=== PATIENT | female | born 2000 | race Caucasian/White ===

== ENCOUNTER 2021-04-21 15:44 | Observation (INO) | payer OTHER ==
[2021-04-21] MEDS ORDERED: ACETAMINOPHEN 325 MG TABLET (FP) PO ONE (16:40)
[2021-04-21] MEDS ORDERED: ACETAMINOPHEN 325 MG TABLET (FP) ONE (17:22)
[2021-04-21 17:29] LABS: BASO % 0.2 % (0-2.0); EOS % 1.2 % (0-4.5); HEMATOCRIT 39.2 % (32.4-45.2); HEMOGLOBIN 13.3 GM/dL (10.7-15.3); LYMPH % 19.6 % (8-40); MCH 30.7 pg (25.7-33.7); MCHC 33.8 g/dl (32.0-36.0); MEAN CELL VOLUME 90.7 fl (80-96); MEAN PLT VOLUME 9.8 fl (7.5-11.1); MONO % 9.4 % (3.8-10.2); NEUT % 69.6 % (42.8-82.8); PLATELET COUNT 283 K/MM3 (134-434); RBC 4.32 M/mm3 (3.60-5.2); RDW 13.2 % (11.6-15.6); WHITE BLOOD COUNT 9.1 K/mm3 (4.0-10.0)
[2021-04-21 17:51] LABS: CALCIUM 8.8 mg/dL (8.5-10.1)
[2021-04-21 17:52] LABS: BLOOD UREA NITROGEN 8.8 mg/dL (7-18)
[2021-04-21 17:55] LABS: CREATININE 0.7 mg/dL (0.55-1.3)
[2021-04-21 17:56] LABS: BILIRUBIN,TOTAL 0.8 mg/dL (0.2-1); TOT PROT 7.7 g/dl (6.4-8.2)
[2021-04-21] MEDS ORDERED: ACETAMINOPHEN 325 MG TABLET (FP) PO PRN (20:40)
[2021-04-22 02:24] LABS: INR 1.03 (0.83-1.09); PROTHROMBIN TIME (PATIENT) 12.4 SEC (9.7-13.0)
[2021-04-22 02:27] LABS: ACTIVATED PTT 32.2 SECONDS (25.2-36.5)
[2021-04-22 05:59] VITALS: BMI 30.4
[2021-04-22 08:54] LABS: HEMATOCRIT 41.2 % (32.4-45.2); MCH 30.6 pg (25.7-33.7); MEAN CELL VOLUME 90.1 fl (80-96); MEAN PLT VOLUME 9.1 fl (7.5-11.1); PLATELET COUNT 298 K/MM3 (134-434); RBC 4.57 M/mm3 (3.60-5.2); RDW 13.3 % (11.6-15.6); WHITE BLOOD COUNT 9.4 K/mm3 (4.0-10.0)
[2021-04-22 09:35] LABS: BLOOD UREA NITROGEN 9.6 mg/dL (7-18); CALCIUM 8.9 mg/dL (8.5-10.1)
[2021-04-22 09:39] LABS: CREATININE 0.7 mg/dL (0.55-1.3)
[2021-04-22 10:48] VITALS: BP 124/69; PULSE 75; TEMP 97.7
== END 2021-04-22 12:51 | disposition home or self-care (01) ==
LOC: JER 15:44 → INTOOBSV 18:13 → JERBED 18:13 → J6S 23:31
PROVIDERS: ADMIT Hospitalist; ATTEND Student in an Organized Health Care Education/Training Program
DX: G93.2 Benign intracranial hypertension (principal); G43.909 Migraine, unspecified, not intractable, without status migrainosus; E66.8 Other obesity; Z68.30 Body mass index [BMI] 30.0-30.9, adult; Z91.010 Allergy to peanuts
CPT/HCPCS: 36415; 70450-TC; 70551-TC; 80048; 80053; 80061; 83036; 83721; 84703; 85025; 85027; 85610; 85730; 93005; 93010; 99285-25; C9803; G0378; U0003; U0005

== ENCOUNTER 2021-11-19 16:02 | Emergency (ER) | payer OTHER ==
[2021-11-19 16:14] VITALS: BP 105/64; PULSE 83; TEMP 97.3; BMI 31.7
== END 2021-11-19 21:16 | disposition home or self-care (01) ==
LOC: JER 16:02
DX: B34.9 Viral infection, unspecified (principal)
CPT/HCPCS: 87070; 87804; 99283-25; C9803; U0003; U0005

== ENCOUNTER 2024-06-17 20:54 | Emergency (ER) | payer OTHER ==
[2024-06-17 21:05] VITALS: BP 112/70; PULSE 87; RESP 18; TEMP 97.6; BMI 32.5
== END 2024-06-17 23:03 | disposition home or self-care (01) ==
LOC: JERFT 20:54
DX: S93.501A Unspecified sprain of right great toe, initial encounter (principal); W22.8XXA Striking against or struck by other objects, initial encounter
CPT/HCPCS: 73660-TC-FY; 99283-25